=== PATIENT | male | born 1975 | race Two or more races ===

== ENCOUNTER 2023-05-08 14:32 | Emergency (ER) | payer SELFPAY ==
[~2023-05-08] VITALS: Ht 167.6 cm; Wt 130.9 kg
[2023-05-08 19:04] VITALS: BP 150/104; PULSE 97; RESP 16; TEMP 97.3; O2SAT 98
[2023-05-08] MEDS ORDERED: IBUP-1456 PO (19:46)
== END 2023-05-08 20:45 | disposition home or self-care (01) ==
LOC: ER 14:32
DX: S09.8XXA Other specified injuries of head, initial encounter (principal); W20.8XXA Other cause of strike by thrown, projected or falling object, initial encounter; Y93.01 Activity, walking, marching and hiking; Y92.038 Other place in apartment as the place of occurrence of the external cause; Y99.8 Other external cause status
CPT/HCPCS: 70450